=== PATIENT | male | born 1965 | race Caucasian/White ===

== ENCOUNTER 2019-07-07 09:08 | Emergency (ER) | payer OTHER ==
[~2019-07-07] VITALS: Ht 172.7 cm; Wt 85.8 kg
[~2019-07-07 09:08] MED LIST: ALBU18HF INHALATION; AMLO-145 ORAL; AMOX500C2 PO; AZIT250T PO; GABA300C16 ORAL; IBUP800T48 PO; TOLT4CAP13 ORAL
[2019-07-07 09:14] VITALS: Ht 172.7 cm; Wt 85.8 kg
[2019-07-07] MEDS ORDERED: CEFTRIAXONE 1 GM/50 ML (PMX) 50 ML IVPB STA (09:24)
[2019-07-07] MEDS ORDERED: ACETAMINOPHEN 500 MG TAB PO STA (09:24)
[2019-07-07] MEDS ORDERED: AZITHROMYCIN 500MG/NS (PMX) 250 ML IV STA (09:24)
[2019-07-07] MEDS ORDERED: KETOROLAC 30 MG INJ IV STA (09:24)
[2019-07-07] MEDS ORDERED: SODIUM CHLORIDE 0.9% 1L BAG IV* STA (09:24)
[2019-07-07] MEDS ORDERED: ACETAMINOPHEN 325 MG TAB PO STA (09:24)
[2019-07-07 13:05] VITALS: BP 127/93; PULSE 86; RESP 19
== END 2019-07-07 13:06 | disposition home or self-care (01) ==
LOC: E/R 09:08
DX: J18.1 Lobar pneumonia, unspecified organism (principal); I10 Essential (primary) hypertension; Z86.73 Personal history of transient ischemic attack (TIA), and cerebral infarction without residual deficits
CPT/HCPCS: 36415; 71045; 80048; 83605; 85025; 87040; 93005; 96365; 96366; 96367; 96375; 99285; J0456; J0696; J1885; J7030